=== PATIENT | male | born 1965 | race African-American/Black ===

== ENCOUNTER 2023-08-05 08:41 | Emergency (ER) | payer MEDICAID, OTHER ==
[~2023-08-05] VITALS: Ht 193 cm; Wt 72.8 kg
[2023-08-05 09:14] VITALS: BP 120/73; PULSE 85; RESP 18; TEMP 97.8; O2SAT 98
[2023-08-05] MEDS ORDERED: BENZ100C97 PO (10:34)
[2023-08-05] MEDS ORDERED: POLY335015 PO (10:34)
[2023-08-05] MEDS ORDERED: DOCU250C67 PO (10:36)
== END 2023-08-05 10:44 | disposition home or self-care (01) ==
LOC: ER 08:41
DX: B34.9 Viral infection, unspecified (principal); R05.9 Cough, unspecified; R07.89 Other chest pain; Z79.899 Other long term (current) drug therapy
CPT/HCPCS: 71046